=== PATIENT | female | born 1970 | race Two or more races ===

== ENCOUNTER 2016-11-03 09:34 | Inpatient (IN) | payer BC, OTHER ==
[~2016-11-03] VITALS: Ht 160 cm; Wt 68.0 kg
[2016-11-03 10:09] LABS: *URINE HCG, QUAL NEGATIVE (NEGATIVE)
[2016-11-03 13:30] VITALS: BP 126/69
[2016-11-03 14:00] VITALS: BP 115/65
--- NOTE | 2016-11-03 14:00 | NUR ---
PATIENT CAME FROM SURGERY POST OP VS TAKEN STABLE NO SOB CONTINUE O2 AT 2L /VIAN/C HOB UP 30 DEGREE ABD DSG D/I MITUL PAD INPLACE NO BLEEDING NOTED NO PAIN AT THIS TIME FAMILY AT BEDSIDE START CLEAR LIQ DENIS SMALL AMT ON FALL PRECAUTION CALL MENDEZ WITHIN REACH
--- NOTE | 2016-11-03 15:00 | NUR ---
DR CLARKES SEEN PATIENT AND NEW ORDER IN CHART IVF CHANGE ORDER AND LAB DRAWN TODAY
[2016-11-03 15:12] VITALS: BP 118/53
--- NOTE | 2016-11-03 15:30 | NUR ---
START CLEAR LIQ DIET THIS AFTERNOON DENIS MOD AMT NO N/V OR PAIN AT THIS TIME
[2016-11-03] MEDS ORDERED: vit c PO (15:33)
[2016-11-03] MEDS ORDERED: ferr PO (15:35)
[2016-11-03] MEDS ORDERED: NAPR1TAB PO (15:37)
[2016-11-03 16:00] LABS: AMYLASE 37 U/L (25-115); LIPASE 75 U/L (73-393)
--- NOTE | 2016-11-03 17:00 | NUR ---
ENC TO COUGH AND DEEP BREATH AND USE INCENTIVE SPIROMETER WHILE AWAKE INSTRUCTION ,VERBALIZES UNDERSTAND NO SOB CONTINUE O2 2L O2 SAT WAS WNL 98%
--- NOTE | 2016-11-03 17:30 | NUR ---
STABLE HEMODYNAMIC STATUS SAFETY MEASURE PROVIDED CALL LIGHT WITHIN REACH AND BED ALARM ON REMIND TO CALL WHEN NEEDED
[2016-11-03 20:00] VITALS: BP 111/63
[2016-11-03 21:22] VITALS: BP 108/53
--- NOTE | 2016-11-03 22:37 | NUR ---
RECEIVED PATIENT AWAKE IN BED WITH HER FAMILY AT BEDSIDE. NO COMPLAINT OF PAIN, DRESSING INTACT NO SIGNS OF ACTIVE BLEEDING. VITAL SIGNS ARE STABLE. VOMITED OF LARGE AMOUNT GIVEN PRN ZOFRAN. THEN COMPLAINT OF MODERATE PAIN GIVEN IV DILAUDID. OTHERWISE NO RESPIRATORY DISTRESS, ON NC 2L O2 SATS AT 99%, ENCOURAGED TO USE SPIROMETER. CONTINUED ON FLUIDS D5 HALF SALINE INFUSION. HUMPHREY IN PLACED DRAINING CLEAR YELLOW URINE. OTHERWISE PATIENT IS SLEEPING AT THIS TIME. CALL LIGHT WITHIN REACH.
--- NOTE | 2016-11-04 05:17 | NUR ---
REMOVED HUMPHREY CATH. PATIENT WAS ABLE T GET OUT OF BED AND WALKED TO THE BATHROOM WITH MODERATE PAIN,GIVEN PRN NORCO ORDERED. SHE WAS FEELING A LITTLE DIZZY GETTING UP OTHERWISE HER VITAL SIGNS ARE STABLE. REMINDED TO USE SPIROMETRY MORE OFTEN. OTHERWISE PATIENT HAS NO OTHER COMPLAINT NO RESPIRATORY DISTRESS. CALL LIGHT WITHIN REACH.
[2016-11-04 05:47] VITALS: BP 116/54
[2016-11-04 06:42] LABS: BASOPHILS % (AUTO) 0.2 % (0.0-2.0); EOSINOPHILS % (AUTO) 0.1 % (0.0-7.0); HEMATOCRIT 28.4 % (37-47); HEMOGLOBIN 9.7 G/DL (12.0-16.0); LYMPHOCYTES # (AUTO) 1.3 K/UL (0.8-4.8); MEAN CORPUSCULAR HEMOGLOBIN 28.5 UUG (27.0-31.0); MEAN CORPUSCULAR HGB CONC 34 g/dL (32.0-37.0); MEAN CORPUSCULAR VOLUME 83.4 FL (81.0-99.0); MONOCYTES # (AUTO) 1.3 K/UL (0.1-1.30); MONOCYTES % (AUTO) 9.9 % (0.0-11.0); NEUTROPHILS # (AUTO) 10.2 K/UL (1.8-8.9); NEUTROPHILS % (AUTO) 79.8 % (38.5-71.5); PLATELET COUNT (AUTO) 245 K/UL (150-450); WHITE BLOOD COUNT (AUTO) 12.8 K/UL (4.0-11.2)
[2016-11-04 06:54] LABS: BILIRUBIN,TOTAL 0.5 mg/dL (0.2-1.0); CREATININE 1.1 mg/dL (0.6-1.3); PHOSPHOROUS 4.1 mg/dL (2.5-4.9); POTASSIUM 3.8 mmol/L (3.5-5.1); TOTAL PROTEIN, SERUM 6.3 g/dL (6.4-8.2)
[2016-11-04 09:01] LABS: THYROID STIMULATING HORMONE 0.464 mIU/mL (0.358-3.740)
[2016-11-04] MEDS ORDERED: FERR-58 PO (10:10)
[2016-11-04] MEDS ORDERED: ASCORBIC ACID (10:18)
[2016-11-04 11:48] VITALS: BP 107/58
[2016-11-04 14:44] LABS: *BILIRUBIN,URIN NEGATIVE (NEGATIVE); *BLOOD, URINE 3+ (NEGATIVE); *CLARITY,URINE CLOUDY (CLEAR); *COLOR,URINE YELLOW (YELLOW); *KETONES,URINE NEGATIVE (NEGATIVE); *PROTEIN,URINE 1+ (NEGATIVE); *UROBILINOGEN,URINE 0.2 E.U./dl (NORMAL); NITRITE, URINE NEGATIVE (NEGATIVE)
[2016-11-04 14:59] LABS: LEUKOCYTE ESTERASE ,URINE TRACE (NEGATIVE); UGLUCOSE 1+ (NEGATIVE)
[2016-11-04 15:02] LABS: BACTERIA,URINE MODERATE /HPF (NONE SEEN); MUCUS,URINE FEW /LPF (0-FEW); RBC,URINE 50-80 /HPF (0-3); SQUAMOUS EPITHELIAL CELL,UR MANY /HPF (NONE SEEN)
[2016-11-04 16:07] VITALS: BP 103/53
--- NOTE | 2016-11-04 18:54 | NUR ---
Pt has remained stable during this shift. Pt states feeling bloated after ambulation and incisional pain of 6/10, both of which resolved by PRN pain medication administered as ordered. V/S WNL. Pt sitting comfortably in chair with family visiting bedside at this time. No distress/pain present. Will continue to monitor and endorse to material handler 2nd shift.
--- NOTE | 2016-11-04 19:05 | NUR ---
Report received from Luh Donovan RN. Pt resting calmly in bed with no signs or evidence of distress. Respirations even and unlabored, pt on room air. Pt reports 4/10 pain at upper/lower abdomen. Pt does states pain is tolerable and does not request any interventions at this time. Pt encouraged to ambulate. 3 female family members present at bedside. Bed in lowest position, call light and personal items within reach, room free of clutter. Care of pt assumed at this time. Will continue to monitor.
[2016-11-04 20:15] VITALS: BP 123/55
--- NOTE | 2016-11-05 02:07 | NUR ---
Pt resting calmly in bed with no complaint or evidence of distress. Respirations even and unlabored. No signs of bleeding. Bed in lowest position, call light and personal items within reach, side rails up x2, room free of clutter. Will continue to monitor.
[2016-11-05 04:00] VITALS: BP 100/34
--- NOTE | 2016-11-05 07:31 | NUR ---
Report given to ERLINDA Estrella.
[2016-11-05 08:07] LABS: BASOPHILS # (AUTO) 0.1 K/uL (0.0-8.0); BASOPHILS % (AUTO) 0.7 % (0.0-2.0); EOSINOPHILS # (AUTO) 0.2 K/uL (0.0-0.7); HEMOGLOBIN 8.4 G/DL (12.0-16.0); LYMPHOCYTES # (AUTO) 2.3 K/UL (0.8-4.8); LYMPHOCYTES % (AUTO) 26.4 % (20.5-51.5); MEAN CORPUSCULAR HEMOGLOBIN 28.4 UUG (27.0-31.0); MEAN CORPUSCULAR HGB CONC 34 g/dL (32.0-37.0); MEAN CORPUSCULAR VOLUME 83.1 FL (81.0-99.0); MONOCYTES # (AUTO) 0.8 K/UL (0.1-1.30); MONOCYTES % (AUTO) 9.4 % (0.0-11.0); NEUTROPHILS # (AUTO) 5.4 K/UL (1.8-8.9); NEUTROPHILS % (AUTO) 61.5 % (38.5-71.5); PLATELET COUNT (AUTO) 204 K/UL (150-450)
[2016-11-05 08:35] LABS: RED BLOOD CELL COUNT(AUTO) 2.95 MIL/UL (4.2-5.4); WHITE BLOOD COUNT (AUTO) 8.8 K/UL (4.0-11.2)
[2016-11-05 08:36] LABS: HEMATOCRIT 24.5 % (37-47)
--- NOTE | 2016-11-05 09:12 | NUR ---
pt seen on rounding. pt alert and oriented x4. vitals assessed and stable. pt complained of a head ache with severity of 8/10. pt given norco 5 325. pt ate breakfast and meds were taken as prescribed. will continue to monitor for changes.
[2016-11-05 10:19] LABS: CREATININE 0.6 mg/dL (0.6-1.3); PHOSPHOROUS 2.4 mg/dL (2.5-4.9); POTASSIUM 3.9 mmol/L (3.5-5.1)
[2016-11-05] MEDS ORDERED: SULF1TAB48 PO (10:46)
[2016-11-05 11:42] VITALS: BP 130/63
--- NOTE | 2016-11-05 14:39 | NUR ---
pt left at 1400. pt vitals stable. without complications nor acute distress. pt incision intact with chris. pt has follow up appointment with surgeon to remove stable. pt given discharge instructions along with exitcare in subjects such as infection control, fall prevention, and smoking cessation. pt verbalizes understanding. pt signed discharge summary and placed in chart. wound picture taken and placed in chart. belongings signed and placed in chart. pt used wheelchair and assisted in discharge.
== END 2016-11-05 13:35 | disposition home or self-care (01) | DRG 742 ==
LOC: DS 09:34 → MED 14:03
PROVIDERS: ADMIT Obstetrics & Gynecology; ATTEND Obstetrics & Gynecology
DX: D25.9 Leiomyoma of uterus, unspecified (principal); N39.0 Urinary tract infection, site not specified; D50.9 Iron deficiency anemia, unspecified; J45.909 Unspecified asthma, uncomplicated; N92.1 Excessive and frequent menstruation with irregular cycle
CPT/HCPCS: 36415; 71010; 82746; 83690; 83735; 84100; 84443; 84703; 85025; 85730; 87040; 87086; A4649; A4663; J0690; J0696; J1100; J1170; J1885; J2250; J2405; J2710; J3010; J3490; J7042; J7060; J7120